=== PATIENT | female | born 1965 | race Caucasian/White ===

== ENCOUNTER 2018-09-29 17:47 | Inpatient (IN) ==
[2018-09-29 18:53] LABS: Basophils % 0.4 % (0.0-0.8); Eosinophils # 0.1 10*3/uL (0.0-0.87); Eosinophils % 0.7 % (0.00-10.9); Hematocrit 41.2 VOL% (35.7-47.0); Hemoglobin 13.4 GM/DL (12.0-16.0); Immature Granulocytes % 0.4 %; Immature Granulocytes Absolute 0.03 #; Lymphocytes # 1.7 10*3/uL (1.4-4.0); Lymphocytes % 23.8 % (21.3-54.2); Mean Corpuscular HGB Conc 32.5 GM/DL (32-36); Mean Corpuscular Hemoglobin 30 PG (27-34); Mean Corpuscular Volume 90.9 FL (87-102); Mean Platelet Volume 10.5 FL (9.6-12.0); Monocytes # 0.6 10*3/uL (0.11-0.8); Monocytes % 8.1 % (1.7-12.7); Neutrophils # 4.7 10*3/uL (1.4-7.4); Neutrophils % 66.6 % (38.7-73.9); Platelet Count 148 T/CUMM (130-400); Red Blood Count 4.53 MC/CUMM (3.8-5.5); Red Cell Distribution Width 12.4 % (9.3-17.3); White Blood Count 7.1 T/CUMM (4-12)
[2018-09-29 19:05] LABS: Alanine Aminotransferase 33 U/L (13-56); Alkaline Phosphatase 65 U/L (45-117); Aspartate Amino Transferase 21 U/L (0-37); Blood Urea Nitrogen 16 MG/DL (7-18); Calcium 8.9 MG/DL (8.5-10.1); Glucose 96 MG/DL (74-106); INR 1.1; Osmolality,Calculated 283.1 MOS/KG (273-304); PT Patient Result 11.4 SECS; Partial Thromboplastin Time 27.1 SECS (0-40); Potassium 3.9 MMOL/L (3.5-5.1); Sodium 142 MMOL/L (136-145); Total Protein 7.7 G/DL (6.4-8.3); Troponin I < 0.015 NG/ML (0.00-0.045)
[2018-09-29 20:03] LABS: Apearance,Urine Slightly Hazy (Clear); Bilirubin,Urine Negative (Negative); Blood, Urine Negative (Negative); Glucose,Urine (UA) Negative (Negative); Ketones,Urine Negative (Negative); Mucus,Urine Occasional /LPF (Occasional); Nitrite,Urine Negative (Negative); Protein,Urine Negative; RBC,Urine 7 /HPF (0-4); Squamous Epithelial Cell,Urine Occasional /HPF (0-10); Urine Color Yellow (Yellow); Urine Specific Gravity 1.014 (1.001-1.035); Urine Urobilinogen < 2.0 EU/DL (0.2-1.0); WBC,Urine 8 /HPF (0-6)
[2018-09-29] MEDS ORDERED: diphenhydrAMINE CAP 25 MG CAPSULE PO PRN (20:05)
[2018-09-29] MEDS ORDERED: MORPHINE 4 MG/1 ML VIAL IV PRN (20:05)
[2018-09-29] MEDS ORDERED: NICOTINE 21 MG/24 HR PATCH TRANSDERM PRN (20:05)
[2018-09-29] MEDS ORDERED: ZALEPLON 5 MG CAPSULE PO PRN (20:05)
[2018-09-29] MEDS ORDERED: ACETAMINOPHEN 325 MG TABLET PO PRN (20:05)
[2018-09-29] MEDS: SODIUM CHLORIDE 0.9% 1,000 ML IV SCH (22:02)
[2018-09-29 22:15] LABS: Risk Ratio 3.34; VLDL CHOLESTEROL 20.6 MG/DL
[2018-09-30 06:08] LABS: Osmolality,Calculated 285.8 MOS/KG (273-304); Potassium 3.9 MMOL/L (3.5-5.1)
[2018-09-30] MEDS ORDERED: ENOXAPARIN 40 MG/0.4 ML SYRINGE SUBCUT SCH (09:00)
[2018-09-30] MEDS: ASPIRIN EC 81 MG TABLET PO SCH (09:27)
[2018-09-30] MEDS: ATORVASTATIN 40 MG TABLET PO SCH (09:27)
[2018-09-30] MEDS: DEXAMETHASONE 4 MG TABLET PO SCH (20:19)
[2018-10-01] MEDS: SODIUM CHLORIDE 0.9% 1,000 ML IV SCH (03:51)
[2018-10-01] MEDS: ASPIRIN EC 81 MG TABLET PO SCH (08:30)
[2018-10-01] MEDS: DEXAMETHASONE 4 MG TABLET PO SCH ×2 (08:30→21:14)
[2018-10-01] MEDS: ATORVASTATIN 40 MG TABLET PO SCH (08:30)
[2018-10-01] MEDS ORDERED: VANCOMYCIN INJ 1,000 MG in SODIUM CHLORIDE 0.9% 250 ML IV ONE (12:16)
[2018-10-01 16:31] LABS: Appearance,CSF Clear; Lymphocytes,CSF 80 %; Monocytes,CSF 15 %; Neutrophils,CSF 5 %; Red Blood Cell,CSF 13 C/CUMM; White Blood Cell,CSF 5 C/CUMM
[2018-10-02] MEDS: SODIUM CHLORIDE 0.9% 1,000 ML IV SCH ×2 (05:30→23:25)
[2018-10-02] MEDS: ASPIRIN EC 81 MG TABLET PO SCH (09:16)
[2018-10-02] MEDS: DEXAMETHASONE 4 MG TABLET PO SCH (09:16)
[2018-10-02] MEDS: ATORVASTATIN 40 MG TABLET PO SCH (09:16)
[2018-10-02] MEDS ORDERED: DEXAMETHASONE 10 MG/1 ML VIAL IV SCH (11:30)
[2018-10-02] MEDS: DEXAMETHASONE INJ 20 MG in SODIUM CHLORIDE 0.9% 50 ML IV SCH ×2 (15:03→22:46)
[2018-10-03] MEDS: SODIUM CHLORIDE 0.9% 1,000 ML IV SCH ×2 (00:59→14:51)
[2018-10-03] MEDS: ATORVASTATIN 40 MG TABLET PO SCH (09:01)
[2018-10-03] MEDS: ASPIRIN EC 81 MG TABLET PO SCH (09:01)
[2018-10-03] MEDS: DEXAMETHASONE INJ 20 MG in SODIUM CHLORIDE 0.9% 50 ML IV SCH ×2 (12:20→23:42)
[2018-10-04] MEDS: SODIUM CHLORIDE 0.9% 1,000 ML IV SCH ×2 (04:12→18:28)
[2018-10-04] MEDS: ASPIRIN EC 81 MG TABLET PO SCH (08:13)
[2018-10-04] MEDS: ATORVASTATIN 40 MG TABLET PO SCH (08:13)
[2018-10-04] MEDS: DEXAMETHASONE INJ 20 MG in SODIUM CHLORIDE 0.9% 50 ML IV SCH ×2 (12:47→23:05)
[2018-10-05 08:31] LABS: M. Tuberculosis PCR Result Negative (Negative); M. Tuberculosis PCR Source CSF
[2018-10-05] MEDS: SODIUM CHLORIDE 0.9% 1,000 ML IV SCH ×2 (09:05→23:34)
[2018-10-05] MEDS: ATORVASTATIN 40 MG TABLET PO SCH (09:06)
[2018-10-05] MEDS: ASPIRIN EC 81 MG TABLET PO SCH (09:06)
[2018-10-05] MEDS: DEXAMETHASONE INJ 20 MG in SODIUM CHLORIDE 0.9% 50 ML IV SCH ×2 (13:12→23:35)
[2018-10-05] MEDS ORDERED: ONDANSETRON 4 MG/2 ML VIAL IV PRN (23:28)
[2018-10-06] MEDS: SODIUM CHLORIDE 0.9% 1,000 ML IV SCH (09:59)
[2018-10-06] MEDS: ATORVASTATIN 40 MG TABLET PO SCH (09:59)
[2018-10-06] MEDS: ASPIRIN EC 81 MG TABLET PO SCH (09:59)
[2018-10-06] MEDS: GRANISETRON 1 MG/1 ML VIAL IV SCH (10:00)
[2018-10-06] MEDS: DEXAMETHASONE INJ 20 MG in SODIUM CHLORIDE 0.9% 50 ML IV SCH (14:20)
[2018-10-07] MEDS: DEXAMETHASONE INJ 20 MG in SODIUM CHLORIDE 0.9% 50 ML IV SCH ×2 (01:33→13:42)
[2018-10-07] MEDS: SODIUM CHLORIDE 0.9% 1,000 ML IV SCH (04:51)
[2018-10-07] MEDS: GRANISETRON 1 MG/1 ML VIAL IV SCH (08:57)
[2018-10-07] MEDS: ATORVASTATIN 40 MG TABLET PO SCH (08:58)
[2018-10-07] MEDS: ASPIRIN EC 81 MG TABLET PO SCH (08:58)
[2018-10-07 11:50] LABS: Breast Carcinoma Ag(CA 27.29) 12.8 U/mL (<=38.0)
[2018-10-08] MEDS: DEXAMETHASONE INJ 20 MG in SODIUM CHLORIDE 0.9% 50 ML IV SCH ×2 (01:15→14:02)
[2018-10-08 04:33] LABS: Basophils % 0.3 % (0.0-0.8); Eosinophils % 0.1 % (0.00-10.9); Hematocrit 40.8 VOL% (35.7-47.0); Hemoglobin 13.6 GM/DL (12.0-16.0); Immature Granulocytes % 1.8 %; Immature Granulocytes Absolute 0.26 #; Lymphocytes # 0.6 10*3/uL (1.4-4.0); Lymphocytes % 4.1 % (21.3-54.2); Mean Corpuscular HGB Conc 33.3 GM/DL (32-36); Mean Corpuscular Hemoglobin 30 PG (27-34); Mean Corpuscular Volume 89.1 FL (87-102); Mean Platelet Volume 11.6 FL (9.6-12.0); Monocytes # 0.8 10*3/uL (0.11-0.8); Monocytes % 5.1 % (1.7-12.7); Neutrophils % 88.6 % (38.7-73.9); Platelet Count 165 T/CUMM (130-400); Red Blood Count 4.58 MC/CUMM (3.8-5.5); Red Cell Distribution Width 12.6 % (9.3-17.3); White Blood Count 14.7 T/CUMM (4-12)
[2018-10-08 05:00] LABS: Albumin 2.8 G/DL (3.4-5.0); Bilirubin,Total 0.6 MG/DL (0.2-1.0); Osmolality,Calculated 278.7 MOS/KG (273-304); Potassium 4.2 MMOL/L (3.5-5.1); Total Protein 5.7 G/DL (6.4-8.3)
[2018-10-08 05:21] LABS: Band Neutrophils 1 % (0-10); Lymphocytes 7 % (20-55); Segmented Neutrophils 90 % (50-85); Total Cells Counted 100
[2018-10-08 05:22] LABS: Hypochromasia 1+; Platelet Estimate Adequate
[2018-10-08] MEDS: ATORVASTATIN 40 MG TABLET PO SCH (08:45)
[2018-10-08] MEDS: ASPIRIN EC 81 MG TABLET PO SCH (08:45)
[2018-10-08] MEDS: GRANISETRON 1 MG/1 ML VIAL IV SCH (08:45)
[2018-10-08] MEDS: ALUMINUM/MAGNES/SIMETH MAX STR 30 ML UDCUP PO PRN (10:18)
[2018-10-09] MEDS: DEXAMETHASONE INJ 20 MG in SODIUM CHLORIDE 0.9% 50 ML IV SCH ×2 (01:13→14:52)
[2018-10-09 05:17] LABS: Albumin 2.9 G/DL (3.4-5.0); Bilirubin,Total 0.5 MG/DL (0.2-1.0); Calcium 8.2 MG/DL (8.5-10.1); Osmolality,Calculated 279.7 MOS/KG (273-304); Potassium 4.4 MMOL/L (3.5-5.1)
[2018-10-09] MEDS: SODIUM CHLORIDE 0.9% 1,000 ML IV SCH (07:38)
[2018-10-09] MEDS: ATORVASTATIN 40 MG TABLET PO SCH (08:32)
[2018-10-09] MEDS: ASPIRIN EC 81 MG TABLET PO SCH (09:31)
[2018-10-09] MEDS: ALUMINUM/MAGNES/SIMETH MAX STR 30 ML UDCUP PO PRN (16:14)
[2018-10-09] MEDS: GRANISETRON 1 MG/1 ML VIAL IV SCH (17:51)
[2018-10-10] MEDS: DEXAMETHASONE INJ 20 MG in SODIUM CHLORIDE 0.9% 50 ML IV SCH ×2 (02:06→14:01)
[2018-10-10 06:23] LABS: Albumin 2.9 G/DL (3.4-5.0); Bilirubin,Total 1.1 MG/DL (0.2-1.0); Calcium 8.2 MG/DL (8.5-10.1); Osmolality,Calculated 282.5 MOS/KG (273-304); Potassium 4.5 MMOL/L (3.5-5.1)
[2018-10-10] MEDS: ASPIRIN EC 81 MG TABLET PO SCH (14:01)
[2018-10-10] MEDS: ATORVASTATIN 40 MG TABLET PO SCH (14:01)
[2018-10-10] MEDS: GRANISETRON 1 MG/1 ML VIAL IV SCH (14:01)
[2018-10-11] MEDS: DEXAMETHASONE INJ 20 MG in SODIUM CHLORIDE 0.9% 50 ML IV SCH ×2 (01:33→15:27)
[2018-10-11 06:40] LABS: Albumin 2.7 G/DL (3.4-5.0); Bilirubin,Total 0.6 MG/DL (0.2-1.0); Osmolality,Calculated 281.7 MOS/KG (273-304)
[2018-10-11] MEDS: ALUMINUM/MAGNES/SIMETH MAX STR 30 ML UDCUP PO PRN (15:27)
[2018-10-11] MEDS: GRANISETRON 1 MG/1 ML VIAL IV SCH (15:28)
[2018-10-11] MEDS: ASPIRIN EC 81 MG TABLET PO SCH (15:28)
[2018-10-11] MEDS: ATORVASTATIN 40 MG TABLET PO SCH (15:28)
[2018-10-12] MEDS: DEXAMETHASONE INJ 20 MG in SODIUM CHLORIDE 0.9% 50 ML IV SCH ×2 (01:52→13:25)
[2018-10-12 07:30] LABS: Albumin 2.7 G/DL (3.4-5.0); Bilirubin,Total 0.8 MG/DL (0.2-1.0); Calcium 8.3 MG/DL (8.5-10.1); Osmolality,Calculated 279.8 MOS/KG (273-304); Potassium 4.6 MMOL/L (3.5-5.1); Total Protein 5.7 G/DL (6.4-8.3)
[2018-10-12] MEDS: GRANISETRON 1 MG/1 ML VIAL IV SCH (08:40)
[2018-10-12] MEDS: ASPIRIN EC 81 MG TABLET PO SCH (08:41)
[2018-10-12] MEDS: ATORVASTATIN 40 MG TABLET PO SCH (08:41)
[2018-10-12] MEDS: SERTRALINE 25 MG TABLET PO SCH (21:35)
[2018-10-13] MEDS: DEXAMETHASONE INJ 20 MG in SODIUM CHLORIDE 0.9% 50 ML IV SCH ×2 (02:24→13:24)
[2018-10-13 04:57] LABS: Basophils # 0.1 10*3/uL (0.0-0.2); Basophils % 0.3 % (0.0-0.8); Hematocrit 40.1 VOL% (35.7-47.0); Hemoglobin 13.4 GM/DL (12.0-16.0); Immature Granulocytes Absolute 0.91 #; Lymphocytes # 0.4 10*3/uL (1.4-4.0); Lymphocytes % 1.9 % (21.3-54.2); Mean Corpuscular HGB Conc 33.4 GM/DL (32-36); Mean Corpuscular Hemoglobin 30 PG (27-34); Mean Corpuscular Volume 90.1 FL (87-102); Mean Platelet Volume 10.7 FL (9.6-12.0); Monocytes % 4.4 % (1.7-12.7); Neutrophils # 20.4 10*3/uL (1.4-7.4); Neutrophils % 89.4 % (38.7-73.9); Platelet Count 141 T/CUMM (130-400); Red Blood Count 4.45 MC/CUMM (3.8-5.5); Red Cell Distribution Width 12.8 % (9.3-17.3); White Blood Count 22.9 T/CUMM (4-12)
[2018-10-13 05:19] LABS: Band Neutrophils 1 % (0-10); Lymphocytes 2 % (20-55); Segmented Neutrophils 92 % (50-85); Total Cells Counted 100
[2018-10-13 05:20] LABS: Hypochromasia 1+; Platelet Estimate Normal
[2018-10-13 05:40] LABS: Albumin 2.5 G/DL (3.4-5.0); Bilirubin,Total 0.6 MG/DL (0.2-1.0); Calcium 7.9 MG/DL (8.5-10.1); Osmolality,Calculated 283.7 MOS/KG (273-304); Potassium 4.4 MMOL/L (3.5-5.1); Total Protein 5.4 G/DL (6.4-8.3)
[2018-10-13] MEDS: ASPIRIN EC 81 MG TABLET PO SCH (08:32)
[2018-10-13] MEDS: ATORVASTATIN 40 MG TABLET PO SCH (08:32)
[2018-10-13] MEDS: GRANISETRON 1 MG/1 ML VIAL IV SCH (08:32)
[2018-10-13 17:40] LABS: Apearance,Urine CLEAR (Clear); Bilirubin,Urine Negative (Negative); Blood, Urine Negative (Negative); Glucose,Urine (UA) >=500 mg/dL (Negative); Ketones,Urine 5 mg/dL (Negative); Mucus,Urine Occasional /LPF (Occasional); Nitrite,Urine Negative (Negative); Protein,Urine Negative; RBC,Urine 4 /HPF (0-4); Squamous Epithelial Cell,Urine Occasional /HPF (0-10); Urine Color Yellow (Yellow); Urine Specific Gravity 1.032 (1.001-1.035); Urine Urobilinogen < 2.0 EU/DL (0.2-1.0); WBC,Urine 17 /HPF (0-6)
[2018-10-13] MEDS: SERTRALINE 25 MG TABLET PO SCH (20:47)
[2018-10-14] MEDS: DEXAMETHASONE INJ 20 MG in SODIUM CHLORIDE 0.9% 50 ML IV SCH ×2 (01:27→14:22)
[2018-10-14 04:31] LABS: Basophils # 0.1 10*3/uL (0.0-0.2); Basophils % 0.3 % (0.0-0.8); Hematocrit 39.3 VOL% (35.7-47.0); Hemoglobin 12.8 GM/DL (12.0-16.0); Immature Granulocytes % 3.9 %; Immature Granulocytes Absolute 0.84 #; Lymphocytes # 0.3 10*3/uL (1.4-4.0); Lymphocytes % 1.6 % (21.3-54.2); Mean Corpuscular HGB Conc 32.6 GM/DL (32-36); Mean Corpuscular Hemoglobin 29 PG (27-34); Mean Corpuscular Volume 90.3 FL (87-102); Mean Platelet Volume 10.8 FL (9.6-12.0); Monocytes # 0.8 10*3/uL (0.11-0.8); Monocytes % 3.9 % (1.7-12.7); Neutrophils # 19.4 10*3/uL (1.4-7.4); Neutrophils % 90.3 % (38.7-73.9); Platelet Count 133 T/CUMM (130-400); Red Blood Count 4.35 MC/CUMM (3.8-5.5); Red Cell Distribution Width 13.2 % (9.3-17.3); White Blood Count 21.5 T/CUMM (4-12)
[2018-10-14 04:50] LABS: Calcium 7.9 MG/DL (8.5-10.1); Osmolality,Calculated 286.4 MOS/KG (273-304); Potassium 4.5 MMOL/L (3.5-5.1)
[2018-10-14 05:20] LABS: Band Neutrophils 1 % (0-10); Hypochromasia 1+; Lymphocytes 1 % (20-55); Platelet Estimate Normal; Segmented Neutrophils 94 % (50-85); Total Cells Counted 100
[2018-10-14] MEDS: ASPIRIN EC 81 MG TABLET PO SCH (08:37)
[2018-10-14] MEDS: ATORVASTATIN 40 MG TABLET PO SCH (08:37)
[2018-10-14] MEDS: GRANISETRON 1 MG/1 ML VIAL IV SCH (08:38)
[2018-10-14] MEDS: SERTRALINE 25 MG TABLET PO SCH (20:10)
[2018-10-15] MEDS: DEXAMETHASONE INJ 20 MG in SODIUM CHLORIDE 0.9% 50 ML IV SCH ×2 (01:23→14:43)
[2018-10-15] MEDS: ASPIRIN EC 81 MG TABLET PO SCH (18:43)
[2018-10-15] MEDS: ATORVASTATIN 40 MG TABLET PO SCH (18:43)
[2018-10-15] MEDS: GRANISETRON 1 MG/1 ML VIAL IV SCH (18:43)
[2018-10-15] MEDS: SERTRALINE 25 MG TABLET PO SCH (20:48)
[2018-10-16] MEDS: DEXAMETHASONE INJ 20 MG in SODIUM CHLORIDE 0.9% 50 ML IV SCH ×2 (01:08→13:51)
[2018-10-16] MEDS: ASPIRIN EC 81 MG TABLET PO SCH (08:37)
[2018-10-16] MEDS: GRANISETRON 1 MG/1 ML VIAL IV SCH (08:37)
[2018-10-16] MEDS: ATORVASTATIN 40 MG TABLET PO SCH (08:37)
[2018-10-16] MEDS: SERTRALINE 25 MG TABLET PO SCH (20:56)
[2018-10-17] MEDS: DEXAMETHASONE INJ 20 MG in SODIUM CHLORIDE 0.9% 50 ML IV SCH ×2 (01:23→14:17)
[2018-10-17] MEDS: GRANISETRON 1 MG/1 ML VIAL IV SCH (10:02)
[2018-10-17] MEDS: ASPIRIN EC 81 MG TABLET PO SCH (10:02)
[2018-10-17] MEDS: ATORVASTATIN 40 MG TABLET PO SCH (10:02)
[2018-10-17] MEDS: SERTRALINE 25 MG TABLET PO SCH (20:39)
[2018-10-18] MEDS: DEXAMETHASONE INJ 20 MG in SODIUM CHLORIDE 0.9% 50 ML IV SCH ×2 (02:07→15:23)
[2018-10-18 04:46] LABS: Basophils % 0.3 % (0.0-0.8); Eosinophils % 0.1 % (0.00-10.9); Hematocrit 38.3 VOL% (35.7-47.0); Hemoglobin 12.7 GM/DL (12.0-16.0); Immature Granulocytes % 4.2 %; Immature Granulocytes Absolute 0.66 #; Lymphocytes # 0.3 10*3/uL (1.4-4.0); Mean Corpuscular HGB Conc 33.2 GM/DL (32-36); Mean Corpuscular Hemoglobin 30 PG (27-34); Mean Corpuscular Volume 91.4 FL (87-102); Mean Platelet Volume 10.9 FL (9.6-12.0); Monocytes # 0.4 10*3/uL (0.11-0.8); Monocytes % 2.8 % (1.7-12.7); Neutrophils # 14.4 10*3/uL (1.4-7.4); Neutrophils % 90.6 % (38.7-73.9); Platelet Count 97 T/CUMM (130-400); Red Blood Count 4.19 MC/CUMM (3.8-5.5); Red Cell Distribution Width 13.7 % (9.3-17.3); White Blood Count 15.8 T/CUMM (4-12)
[2018-10-18 05:15] LABS: Albumin 2.1 G/DL (3.4-5.0); Bilirubin,Total 0.4 MG/DL (0.2-1.0); Calcium 7.6 MG/DL (8.5-10.1); Potassium 4.3 MMOL/L (3.5-5.1); Uric Acid 2.9 MG/DL (2.6-6.0)
[2018-10-18 06:09] LABS: Lymphocytes 1 % (20-55); Segmented Neutrophils 97 % (50-85); Total Cells Counted 100
[2018-10-18 06:10] LABS: Platelet Estimate Decreased
[2018-10-18] MEDS: AMOXICILLIN/CLAV 500 MG TABLET PO SCH ×2 (09:36→21:11)
[2018-10-18] MEDS: ATORVASTATIN 40 MG TABLET PO SCH (09:37)
[2018-10-18] MEDS: GRANISETRON 1 MG/1 ML VIAL IV SCH (09:37)
[2018-10-18] MEDS: ASPIRIN EC 81 MG TABLET PO SCH (09:37)
[2018-10-18] MEDS: SERTRALINE 25 MG TABLET PO SCH (21:11)
[2018-10-19] MEDS: DEXAMETHASONE INJ 20 MG in SODIUM CHLORIDE 0.9% 50 ML IV SCH ×2 (01:39→13:18)
[2018-10-19 06:11] LABS: Basophils % 0.2 % (0.0-0.8); Hematocrit 39.2 VOL% (35.7-47.0); Immature Granulocytes % 3.3 %; Immature Granulocytes Absolute 0.56 #; Lymphocytes # 0.5 10*3/uL (1.4-4.0); Lymphocytes % 2.7 % (21.3-54.2); Mean Corpuscular HGB Conc 33.2 GM/DL (32-36); Mean Corpuscular Hemoglobin 30 PG (27-34); Mean Platelet Volume 10.2 FL (9.6-12.0); Monocytes # 0.4 10*3/uL (0.11-0.8); Monocytes % 2.4 % (1.7-12.7); Neutrophils # 15.5 10*3/uL (1.4-7.4); Neutrophils % 91.4 % (38.7-73.9); Red Blood Count 4.31 MC/CUMM (3.8-5.5); Red Cell Distribution Width 13.6 % (9.3-17.3)
[2018-10-19 06:17] LABS: Platelet Count 102 T/CUMM (130-400)
[2018-10-19 06:22] LABS: Calcium 7.7 MG/DL (8.5-10.1); Osmolality,Calculated 283.5 MOS/KG (273-304); Potassium 4.5 MMOL/L (3.5-5.1)
[2018-10-19 06:33] LABS: Hypochromasia 1+; Lymphocytes 2 % (20-55); Ovalocytes Slight; Platelet Estimate Decreased; Segmented Neutrophils 95 % (50-85); Total Cells Counted 100
[2018-10-19] MEDS: ATORVASTATIN 40 MG TABLET PO SCH (08:47)
[2018-10-19] MEDS: ASPIRIN EC 81 MG TABLET PO SCH (08:47)
[2018-10-19] MEDS: AMOXICILLIN/CLAV 500 MG TABLET PO SCH ×2 (08:47→20:22)
[2018-10-19] MEDS: GRANISETRON 1 MG/1 ML VIAL IV SCH (08:47)
[2018-10-19] MEDS: SERTRALINE 25 MG TABLET PO SCH (20:22)
[2018-10-20] MEDS: DEXAMETHASONE INJ 20 MG in SODIUM CHLORIDE 0.9% 50 ML IV SCH ×2 (01:42→14:41)
[2018-10-20] MEDS: AMOXICILLIN/CLAV 500 MG TABLET PO SCH (08:57)
[2018-10-20] MEDS: GRANISETRON 1 MG/1 ML VIAL IV SCH (08:58)
[2018-10-20] MEDS: ATORVASTATIN 40 MG TABLET PO SCH (08:58)
[2018-10-20] MEDS: ASPIRIN EC 81 MG TABLET PO SCH (08:58)
[2018-10-20 13:12] VITALS: BP 113/71
== END 2018-10-20 15:00 | disposition home health service (06) | DRG 55 ==
LOC: N.ED 17:47 → SUATTDRO 20:05 → N.EDINP 20:05 → N.5E 21:00 → N.4E 10-06 11:33
PROVIDERS: ADMIT Internal Medicine; ATTEND Internal Medicine